=== PATIENT | male | born 1945 | race Caucasian/White ===

== ENCOUNTER 2017-09-12 16:18 | Emergency (ER) | payer OTHER, BC ==
[~2017-09-12] VITALS: Ht 170.2 cm; Wt 104.1 kg
[2017-09-12] MEDS ORDERED: VIGAMOX 0.60 DROP/3 RIGHT EYE (19:28)
[2017-09-12] MEDS ORDERED: POLYTRIM EYE DR10 ML RIGHT EYE (19:28)
[2017-09-12] MEDS ORDERED: PRED FORTE100 DROP/5 RIGHT EYE (19:28)
[2017-09-12 20:03] VITALS: BP 152/103
== END 2017-09-12 20:03 | disposition home or self-care (01) ==
LOC: EME 16:18
DX: H15.001 Unspecified scleritis, right eye (principal); Z98.42 Cataract extraction status, left eye; Z98.41 Cataract extraction status, right eye; E55.9 Vitamin D deficiency, unspecified; I10 Essential (primary) hypertension; E78.5 Hyperlipidemia, unspecified; Z79.82 Long term (current) use of aspirin
CPT/HCPCS: 99281; 99283